=== PATIENT | male | born 1995 | race African-American/Black ===

== ENCOUNTER 2017-07-06 07:09 | Emergency (ER) | payer OTHER ==
[~2017-07-06] VITALS: Ht 177.8 cm; Wt 75.0 kg
--- NOTE | 2017-07-06 08:07 | REP ---
Clinical: Trauma. Technique: AP, lateral, bilateral oblique views of the left knee . Findings: The osseous structures and joint spaces are intact and normal. There is no evidence for acute fracture or dislocation. No joint effusion is appreciated. Surrounding soft tissues are unremarkable. No subcutaneous emphysema or radiodense foreign body. Impression: Normal examination. No acute fracture or dislocation. Signed by Honorio Grey MD 07/06/2017 07:58 A
[2017-07-06] MEDS ORDERED: IBUP-1022 PO (09:10)
[2017-07-06 09:22] VITALS: BP 146/72
== END 2017-07-06 09:25 | disposition home or self-care (01) ==
LOC: M ED 07:09
DX: M25.562 Pain in left knee (principal); F17.210 Nicotine dependence, cigarettes, uncomplicated